=== PATIENT | male | born 1975 | race Caucasian/White ===

== ENCOUNTER 2021-11-01 10:31 | Emergency (ER) | payer SELFPAY ==
[~2021-11-01] VITALS: Ht 167.6 cm; Wt 69.9 kg
[2021-11-01 10:44] VITALS: BP 162/72
[2021-11-01 12:07] LABS: CARBON DIOXIDE 27.1 mmol/L (21-32); CREATININE 0.5 mg/dL (0.6-1.3); POTASSIUM 4.1 mmol/L (3.5-5.1)
[2021-11-01] MEDS ORDERED: IBUPROFEN 600 MG TAB PO ONE (12:40)
[2021-11-01] MEDS ORDERED: metFORMIN 500 MG TAB PO ONE (12:40)
[2021-11-01] MEDS ORDERED: METF-1243 PO (12:54)
--- NOTE | 2021-11-01 13:30 | NUR ---
46/M BIB SELF WITH C/O SWELLING TO HANDS AND FEET "FOR MONTHS." PATIENT DENIES CP OR DIFFICULTY BREATHING, STATES "I THINK ITS BECAUSE OF MY DIABETES." PATIENT STATES HE HAS HX OF SEIZURES AND DM BUT HAS NO INSURANCE TO RECEIVE MEDICATIONS, REPORTS LAST SEIZURE WAS September,. PATIENT DENIES N/V/D, DIZZINESS OR HEADACHE.
[2021-11-01 13:51] VITALS: BP 124/94
--- NOTE | 2021-11-01 13:51 | NUR ---
Patient discharged with v/s stable. Written and verbal after care instructions ABOUT METFORMIN TABLETS AND DIABETES MELLITUS AND EXERCISE given and explained. Patient alert, oriented and verbalized understanding of instructions. Ambulatory with steady gait. All questions addressed prior to discharge. ID band removed. Patient advised to follow up with PMD. Rx of METFORMIN given. Patient educated on indication of medication including possible reaction and side effects. Opportunity to ask questions provided and answered.
== END 2021-11-01 13:51 | disposition home or self-care (01) ==
LOC: MED 10:31
DX: E11.65 Type 2 diabetes mellitus with hyperglycemia (principal); R60.0 Localized edema; M79.10 Myalgia, unspecified site
CPT/HCPCS: 36415; 80048; 81002; 83036; 99283

== ENCOUNTER 2024-03-09 18:12 | Emergency (ER) | payer OTHER ==
[~2024-03-09] VITALS: Ht 177.8 cm; Wt 79.4 kg
[~2024-03-09 18:12] MED LIST: METF-1243 PO
[2024-03-09 18:41] VITALS: BP 137/87; PULSE 92; RESP 18; TEMP 98.2; O2SAT 97
[2024-03-09 20:19] LABS: BASOPHILS # (AUTO) 0.1 K/uL (0.00-0.22); BASOPHILS % (AUTO) 1.3 % (0.0-2.0); EOSINOPHILS # (AUTO) 0.3 K/uL (0-0.4); HEMATOCRIT 40.4 % (36-52); HEMOGLOBIN 13.8 g/dL (12.0-18.0); LYMPHOCYTES # (AUTO) 1.7 K/uL (2.0-11.5); LYMPHOCYTES % (AUTO) 30.9 % (20.5-51.1); MEAN CORPUSCULAR HEMOGLOBIN 28 pg (27-31); MEAN CORPUSCULAR HGB CONC 34 g/dL (33-37); MEAN CORPUSCULAR VOLUME 81.2 fL (80-94); MONOCYTES # (AUTO) 0.5 K/uL (0.8-1.0); MONOCYTES % (AUTO) 9.1 % (1.7-9.3); NEUTROPHILS % (AUTO) 53.7 % (42.2-75.2); PLATELET COUNT (AUTO) 150 K/uL (140-450); RED BLOOD CELL COUNT(AUTO) 4.98 MIL/uL (4.20-6.10); RED CELL DISTRIBUTION WIDTH 15.8 % (11.6-13.7); WHITE BLOOD COUNT (AUTO) 5.6 K/uL (4.8-10.8)
[2024-03-09 20:38] LABS: ALBUMIN 3.1 g/dL (3.4-5.0); ANION GAP 11.1 (8-16); CALCIUM 9.1 mg/dL (8.5-10.1); CARBON DIOXIDE 27.1 mmol/L (21-32); POTASSIUM 4.2 mmol/L (3.5-5.1); TOTAL BILIRUBIN 0.3 mg/dL (0.0-1.0); TOTAL PROTEIN, SERUM 7.4 g/dL (6.4-8.2)
[2024-03-09 21:10] LABS: BILIRUBIN,URINE NEGATIVE (NEGATIVE); BLOOD, URINE 2+ (NEGATIVE); COLOR,URINE YELLOW (YELLOW); LEUKOCYTE ESTERASE ,URINE 2+ (NEGATIVE); NITRITE, URINE NEGATIVE (NEGATIVE); PROTEIN,URINE 2+ (NEGATIVE); UGLUCOSE TRACE (NEGATIVE); UROBILINOGEN,URINE 0.2 EU/dL (0.2 - 1)
[2024-03-09 21:13] LABS: APPEARANCE,URINE SLIGHTLY CLOUDY (CLEAR)
[2024-03-09 21:15] LABS: BACTERIA,URINE 2+ /HPF (None Seen); MUCUS,URINE None Seen /LPF (None Seen); SQUAMOUS EPITHELIAL CELL,UR 0-3 (FEW) /LPF (0-3 (FEW))
[2024-03-09 21:26] VITALS: BP 127/81; PULSE 88; RESP 18; TEMP 98; O2SAT 98
[2024-03-09] MEDS ORDERED: MUPI2CRE22 TP (22:04)
[2024-03-09] MEDS ORDERED: SULF-59 PO (22:04)
[2024-03-09] MEDS ORDERED: CHLO100S54 TOP (22:04)
[2024-03-13] MEDS ORDERED: NITR100C7 PO (01:29)
== END 2024-03-09 22:59 | disposition home or self-care (01) ==
LOC: MED 18:12
DX: T83.512A Infection and inflammatory reaction due to nephrostomy catheter, initial encounter (principal); N39.0 Urinary tract infection, site not specified; E11.9 Type 2 diabetes mellitus without complications; I87.8 Other specified disorders of veins; Z86.69 Personal history of other diseases of the nervous system and sense organs; Z79.2 Long term (current) use of antibiotics; Z79.84 Long term (current) use of oral hypoglycemic drugs; Z79.899 Other long term (current) drug therapy
CPT/HCPCS: 36415; 76770; 80053; 81001; 85025; 87086; 87186; 99284